=== PATIENT | female | born 1950 | race Caucasian/White ===

== ENCOUNTER 2018-03-17 07:42 | Day surgery (SDC) | payer BC, MEDICARE ==
[2018-03-15 13:45] VITALS: BMI 28.1
[2018-03-17 07:56] LABS: #Eosinphils 0.2 thou/uL (0.0-0.7); #Lymphocytes 1.6 thou/uL (1.20-3.40); #Monocytes 0.4 thou/uL (0.11-0.59); #Neutrophils 3.1 thou/uL (1.40-6.50); %Basophils 0.8 % (0.0-1.0); %Eosinophils 3.4 % (0.0-10.0); %Lymphocytes 30.9 % (21.0-51.0); %Monocytes 6.6 % (0.0-10.0); %Neutrophils 58.3 % (42.0-75.0); Hemoglobin 12.8 g/dL (12.0-16.0); Mean Corpuscular HGB CONC 33.3 g/dL (32.0-36.0); Mean Corpuscular Hemoglobin 29.4 pg (27.0-31.0); Mean Corpuscular Volume 88.3 fL (78.0-98.0); Mean Platelet Volume 8.3 fL (7.4-10.4); Platelet Count 245 thou/uL (130-400); RBC Distribution Width 12.7 % (11.5-14.5); Red Blood Cell (RBC) Count 4.37 mill/uL (4.20-5.40); White Blood Cell (WBC) Count 5.3 thou/uL (4.8-10.8)
[2018-03-17 08:06] LABS: INR-International Normal Ratio 0.9; PTT 30.9 SEC (22.9-36.1); Prothrombin Time 12.6 SEC (12.0-14.7)
[2018-03-17 08:36] VITALS: BP 138/86; TEMP 97
[2018-03-17] MEDS ORDERED: Sodium Bicarbonate 2.5 MEQ/5 ML VIAL ONE (08:38)
[2018-03-17] MEDS ORDERED: Midazolam HCl 2 mg/2 ml Vial ONE (08:38)
[2018-03-17] MEDS ORDERED: Lidocaine 1% PF 5 ML VIAL ONE (08:39)
[2018-03-17] MEDS ORDERED: Fentanyl 100 MCG/2 ML VIAL ONE (08:39)
[2018-03-17] MEDS ORDERED: Ondansetron HCl/PF 4 MG/2 ML Vial ONE (10:20)
--- NOTE | 2018-03-17 11:29 | ULT ---
SONOGRAPHIC GUIDED RANDOM HEPATIC BIOPSY: HISTORY: Cirrhosis. Followup. TECHNIQUE: After explaining the procedure and answering all questions, a sonographic survey of the abdomen was p erformed. Sterile technique, buffered local anesthesia, sonographic guidance, and a subxiphoid right upper quadrant approach were used to carefully advance a 17 gauge trocar needle into the left liver lobe. Position was confirmed with sonographic imaging. Two 18 gauge core biopsy specimens were obta ined and eventually submitted to pathology for evaluation. The needle was removed. Post procedure i maging shows no evidence of complication. The patient tolerated the procedure well and was returned to the holding area in good condition for further monitoring. IMPRESSION: Technically successful sonographic guided random hepatic biopsy. Pathology is pending. POS: KINDRA
== END 2018-03-17 12:00 | disposition home or self-care (01) ==
LOC: ULT 07:42
PROVIDERS: ATTEND Radiology Diagnostic Radiology
PROC: 0FB03ZX Excision of Liver, Percutaneous Approach, Diagnostic (ICD-10-PCS; principal; 2018-03-17)
DX: K73.9 Chronic hepatitis, unspecified (principal); K74.3 Primary biliary cirrhosis; Z83.79 Family history of other diseases of the digestive system
CPT/HCPCS: 36415; 47000; 76942; 85025; 85610; 85730; 88307; 88313; J2001; J2250; J2405; J3010

== ENCOUNTER 2018-03-20 21:25 | Inpatient (IN) | payer BC, MEDICARE ==
[2018-03-20] MEDS ORDERED: Lidocaine Viscous Sol 2% 15 ml UD Cup ONE (21:56)
[2018-03-20] MEDS ORDERED: Famotidine/PF 20 mg/2ml Vial ONE (21:56)
[2018-03-20] MEDS ORDERED: Mag-Al Plus 1200 MG/1200 MG/120 MG/30 ML UDCUP ONE (21:56)
[2018-03-20] MEDS ORDERED: Nitroglycerin 2% Ointment 1 INCH/1 GM Packet ONE (21:56)
[2018-03-20 21:58] LABS: #Basophils 0.1 thou/uL (0.0-0.2); #Lymphocytes 1.5 thou/uL (1.20-3.40); #Monocytes 0.5 thou/uL (0.11-0.59); #Neutrophils 8.5 thou/uL (1.40-6.50); %Basophils 1.3 % (0.0-1.0); %Eosinophils 0.1 % (0.0-10.0); %Monocytes 4.6 % (0.0-10.0); Hemoglobin 12.6 g/dL (12.0-16.0); Mean Corpuscular HGB CONC 36.1 g/dL (32.0-36.0); Mean Corpuscular Hemoglobin 29.1 pg (27.0-31.0); Mean Corpuscular Volume 80.6 fL (78.0-98.0); Mean Platelet Volume 10.1 fL (7.4-10.4); Platelet Count 247 thou/uL (130-400); RBC Distribution Width 11.3 % (11.5-14.5); Red Blood Cell (RBC) Count 4.33 mill/uL (4.20-5.40); White Blood Cell (WBC) Count 10.7 thou/uL (4.8-10.8)
--- NOTE | 2018-03-20 22:00 | RAD ---
PORTABLE CHEST ONE VIEW: 03/20/18 at 10:05 p.m. HISTORY: Chest pain. FINDINGS: Comparison made with exam of 02/13/12. The heart size is normal. No focal areas of consolidation, pneumothoraces or pleural effusions are se en. IMPRESSION: No acute process. POS: MZA
[2018-03-20 22:10] LABS: ALT (SGPT) 192 U/L (8-55); AST (SGOT) 350 U/L (5-34); Albumin 4.4 g/dL (3.4-4.8); Alkaline Phosphatase 192 U/L (40-150); Anion Gap 20 mmol/L (10-20); BUN (Urea Nitrogen) 18 mg/dL (9.8-20.1); Bilirubin, Total 3.2 mg/dL (0.2-1.2); Calc. Creatinine Clearance 0 mL/min (70-130); Calcium 10.2 mg/dL (7.8-10.44); Carbon Dioxide 22 mmol/L (23-31); Chloride 89 mmol/L (98-107); Estimated GFR-MDRD 67; Globulin 3.2 g/dL (2.4-3.5); Glucose 169 mg/dL (80-115); Lipase 528 U/L (8-78); Potassium 3.8 mmol/L (3.5-5.1); Protein, Total 7.6 g/dL (6.0-8.3); Sodium 127 mmol/L (136-145)
[2018-03-20 22:12] LABS: CKMB 1.4 ng/mL (0-6.6); Troponin I 0.011 ng/mL (< 0.028)
[2018-03-20] MEDS ORDERED: Morphine 4 MG/ML Carpuject ONE (22:35)
[2018-03-20] MEDS ORDERED: Promethazine HCl 25 MG/ML VIAL ONE (23:19)
--- NOTE | 2018-03-20 23:46 | CT ---
CT ANGIOGRAM OF THE CHEST 03/20/18 COMPARISON: None. HISTORY: Chest pain with elevated D-dimer. TECHNIQUE: Serial axial CT imaging obtained at 2 mm intervals from the thoracic inlet through the upper abdomen with IV contrast using CT angiogram protocol. Coronal and sagittal 3D reformatted imaging obtained. FINDINGS: The imaged upper abdomen demonstrates an incompletely imaged adrenal mass on the left measuring 3.4 x 2.1 cm with Hounsfield units of approximately 90. When compared to a prior CT of the abdomen [facility] 12/31/11, this adrenal lesion has only slightly increased in size as it previously measured approx imately 2.1 x 3.3 cm. This suggests a benign etiology. There are splenic granulomata. There is disten tion of the stomach which is filled with fluid. There is a nonspecific ill-defined hyperdense lesion within the anterior aspect of the left lobe of the liver measuring 1.5 cm. No pleural, pericardial or mediastinal fluid is seen. There is no axillary, mediastinal, or hilar lymphadenopathy noted. There is atherosclerotic calcification of the coronary arteries and the aortic arch. There is no pleural, pericardial or mediastinal fluid. No pneumothorax is evident on either side. The lung parenchyma demonstrates no acute findings on either side. Mild increased linear interstitial densities are noted within both lung bases. Calcified nodes are se en in the subcarinal and left hilar region, evidence of prior granulomatous disease. There is adequate opacification of the pulmonary arterial vasculature. There is no evidence for pulmo nary arterial embolism. Review of the osseous structures demonstrates no worrisome lytic or blastic bone lesion. IMPRESSION: 1. No evidence for pulmonary arterial embolism. 2. Hyperenhancing focus within the left lobe of the liver as described above. This may represent a hyperenhancing lass lesion. Mild inflammatory change on the basis of recent biopsy is a possibilit y. Recommend a followup CT examination of the abdomen with and without contrast utilizing a hepatic m ass protocol in 4-6 weeks. Code T POS: KINDRA
[2018-03-21 01:30] LABS: Troponin I Less than 0.010 ng/mL (< 0.028)
[2018-03-21] MEDS ORDERED: Ondansetron HCl/PF 4 MG/2 ML Vial IVP PRN ×2 (02:35→03:41)
[2018-03-21] MEDS ORDERED: Ondansetron ODT 4 MG TAB SL PRN (02:35)
[2018-03-21] MEDS ORDERED: Dextrose 5 %-0.45 % NaCl 1,000 ML IV SCH (02:45)
[2018-03-21] MEDS ORDERED: Calcium Carbonate 500 MG ChewTAB PO PRN (03:41)
[2018-03-21] MEDS ORDERED: Loratadine 10 MG TAB PO PRN (03:41)
[2018-03-21] MEDS ORDERED: Mag-Al 1200 mg/1200 mg/30 ML UDCUP PO PRN (03:41)
[2018-03-21] MEDS ORDERED: Bisacodyl 5 MG TAB PO PRN (03:41)
[2018-03-21] MEDS ORDERED: HYDROcodone/Acetaminophen 10/325 mg Tablet PO PRN (03:41)
[2018-03-21] MEDS ORDERED: Diabetic Tussin 200 MG/10 ML UDCUP PO PRN (03:41)
[2018-03-21] MEDS ORDERED: Nitroglycerin 0.4 MG TAB (25 Tab Bottle) SL PRN (03:41)
[2018-03-21] MEDS ORDERED: Benzonatate 100 MG CAP PO PRN (03:41)
[2018-03-21] MEDS ORDERED: Acetaminophen 650 MG Suppository PR PRN (03:41)
[2018-03-21] MEDS ORDERED: Senokot 8.6 MG TAB PO PRN (03:41)
[2018-03-21 04:23] VITALS: BMI 28.3
[2018-03-21 05:13] LABS: #Lymphocytes 0.8 thou/uL (1.20-3.40); #Monocytes 0.4 thou/uL (0.11-0.59); #Neutrophils 7.3 thou/uL (1.40-6.50); %Basophils 0.3 % (0.0-1.0); %Eosinophils 0.1 % (0.0-10.0); %Lymphocytes 9.1 % (21.0-51.0); %Monocytes 4.8 % (0.0-10.0); %Neutrophils 85.8 % (42.0-75.0); Mean Corpuscular HGB CONC 34.8 g/dL (32.0-36.0); Mean Corpuscular Hemoglobin 30.3 pg (27.0-31.0); Mean Corpuscular Volume 87.1 fL (78.0-98.0); Mean Platelet Volume 8.6 fL (7.4-10.4); Platelet Count 213 thou/uL (130-400); RBC Distribution Width 12.3 % (11.5-14.5); Red Blood Cell (RBC) Count 3.96 mill/uL (4.20-5.40); White Blood Cell (WBC) Count 8.5 thou/uL (4.8-10.8)
[2018-03-21 05:18] LABS: ALT (SGPT) 226 U/L (8-55); AST (SGOT) 347 U/L (5-34); Albumin 3.9 g/dL (3.4-4.8); Alkaline Phosphatase 200 U/L (40-150); Anion Gap 17 mmol/L (10-20); BUN (Urea Nitrogen) 14 mg/dL (9.8-20.1); Bilirubin, Total 3.4 mg/dL (0.2-1.2); Calc. Creatinine Clearance 75 mL/min (70-130); Calcium 8.8 mg/dL (7.8-10.44); Carbon Dioxide 21 mmol/L (23-31); Chloride 93 mmol/L (98-107); Estimated GFR-MDRD 71; Glucose 185 mg/dL (80-115); Potassium 3.9 mmol/L (3.5-5.1); Protein, Total 6.9 g/dL (6.0-8.3); Sodium 127 mmol/L (136-145)
[2018-03-21 05:21] LABS: CKMB 0.9 ng/mL (0-6.6); Troponin I Less than 0.010 ng/mL (< 0.028)
[2018-03-21] MEDS: Sodium Chloride 0.9% 1,000 ML IV SCH ×5 (05:36→22:52)
[2018-03-21] MEDS: Levothyroxine Sodium 100 MCG TAB PO SCH (05:38)
--- NOTE | 2018-03-21 06:55 | HP ---
DATE OF ADMISSION: 03/21/2018 PRIMARY CARE PHYSICIAN: Naveed Spears M.D. CHIEF COMPLAINT: Abdominal pain and chest pain. HISTORY OF PRESENT ILLNESS: Ms. Jaramillo is a pleasant 67-year-old female with past medical history of p rimary biliary cirrhosis under the care of Dr. Wood as well as history of single vessel coronary karen ry disease diagnosed in 2005 by cardiac catheterization, who follows up with Dr. Avila and diabetes and hypertension, who presented to the ER with above-mentioned complaints. History is mainly obtaine d by the patient herself and electronic medical records have been reviewed. The patient underwent a liver biopsy on 03/18 or 03/19/[address] Wood. She reports that yesterday afternoon while shopping in [employer], she developed sudden onset of sharp abdominal pain startin g from the lower abdomen and traveling upwards. She felt extremely nauseated, went to the restroom a nd threw up. She has been feeling poorly since the liver biopsy. This episode resolved with vomitin g, but later she had similar episode and this time the pain was more epigastric, going upwards in the chest. She denies any shortness of breath. She denies any constipation or diarrhea. No fever or c hills. Once again at the second episode, she felt nauseated, but did not throw up. These episodes w ere associated with some shortness of breath and diaphoresis. She reports that she has been having some heartburn-like symptoms, so she underwent a cardiac evaluat ion by cable television line technician, Dr. Avila in December and had a cardiac stress test as well as lower extremity ultra sound and was reportedly everything was normal. She normally takes aspirin but has not taken it for the last 3 days since her biopsy and does not know when it is okay to restarted. She presented to the ER and her blood pressure was 173/82, otherwise hemodynamically stable. She was found to have epigastric tenderness on examination per the ER physician. Twelve lead EKG showed rig ht bundle branch block. Her lab examination showed elevated D-dimer of 2.57. So, she underwent a CT angio of the thorax, whi ch was negative for any pulmonary embolism. Her serum chemistries were consistent with hyperbilirubi nemia with a bilirubin of 3.2 and elevated liver enzymes. Cardiac enzymes were negative. She was al so hyponatremic with a sodium of 127. Blood sugar 169. Her lipase was found to be elevated at 528. She is now being admitted to the hospital for acute pancreatitis and further workup of chest pain/abd ominal pain. PAST MEDICAL HISTORY: 1. Primary biliary cirrhosis. 2. Diabetes mellitus type 2. 3. Hypothyroidism. 4. Hypertension. 5. Dyslipidemia. PAST SURGICAL HISTORY: 1. Cholecystectomy 2. Hysterectomy. 3. Appendectomy. 4. Liver biopsy earlier this month. SOCIAL HISTORY: She is and lives with her family. No history of drug, tobacco or alcohol ab use. FAMILY HISTORY: Coronary artery disease in a father who at the age of 68. Mother had breast ca ncer. Multiple siblings with diabetes. ALLERGIES: Include CARISOPRODOL. HOME MEDICATIONS: Metformin 850 mg p.o. t.i.d., ursodiol 500 mg p.o. b.i.d., losartan/hydrochlorothi azide 100/12.5 mg daily, Victoza 1.2 mg subcutaneous daily, levothyroxine 100 mcg daily, lansoprazole 15 mg daily, hydrocodone as needed, atorvastatin 40 mg daily, and aspirin 81 mg daily. REVIEW OF SYSTEMS: A 12-point review of systems is done. It is negative except for those mentioned in the history and physical. LABORATORY DATA: Sodium 124, chloride 89, bicarbonate 22, blood sugar 169, total bilirubin 3.2, AST 350, ALT 192, alkaline phosphatase 192. Please note that all of these values have been normal histor ically. Lipase is 528, troponin is 0.011, then less than 0.010 with a normal CK-MB. CBC shows 80% n eutrophils with normal WBC count. D-dimer 2.57. CT angio negative for any pulmonary embolism. Ches t x-ray by my review has no evidence to suggest pleural effusion, edema or infiltrate. Twelve lead E KG by my review shows no acute ST-T wave changes, normal sinus rhythm seen, right bundle branch block seen. PHYSICAL EXAMINATION: VITAL SIGNS: Most recent vital signs, temperature 97, heart rate 92, respirations 18, saturating 96% on room air, blood pressure 128/70. GENERAL: No acute distress, awake, alert, oriented x3. HEENT: Mucous membranes are slightly dry. No oropharyngeal exudate or erythema. Head is normocepha lic, atraumatic. Pupils equal, reactive to light and accommodation. Extraocular movement intact. NECK: Supple without any lymphadenopathy, JVD or bruit. CHEST: Clear to auscultation without any wheezing, rales or rhonchi. CARDIOVASCULAR: Rhythm is regular without any murmur, rubs or gallops. ABDOMEN: Soft, nontender, nondistended to gentle palpation. Bowel sounds are not heard very well. No guarding, rebound or rigidity. No hepatosplenomegaly. EXTREMITIES: Free of any cyanosis, clubbing, or edema. NEUROLOGIC: Nonfocal. SKIN: Free of any rashes or bruises. Feel warm and dry to touch. PSYCHIATRIC: Normal affect. IMPRESSION AND PLAN: 1. Acute pancreatitis. This most likely secondary to post-procedural pancreatitis. She had a liver biopsy done about 2 or 3 days ago. We will keep her n.p.o. and continue with IV fluid generously. We will request consultation with Gastroenterology in the morning. Repeat serum chemistries and live r profile in the morning. Repeat lipase in the morning as well. 2. Chest pain. The patient's symptoms are more consistent with abdominal pain secondary to acute pa ncreatitis. I do not feel that the patient was having acute chest pain: However, given her history of 30% lesion in one artery in 2005, we will go ahead and obtain a transthoracic echocardiogram and c ontinue serial cardiac enzymes and restart her aspirin once she is able to take oral. She recently h ad a cardiac stress test done as an outpatient and we will get these records from Dr. Avila's office . 3. Diabetes mellitus type 2. The patient will be n.p.o., so we will hold her oral hypoglycemics. W e will start her on insulin sliding scale with Accu-Cheks a.c. and at bedtime. 4. History of gastroesophageal reflux disease. We will start the patient on IV Protonix for now as long as she is n.p.o. Restart lansoprazole when she is able to take orally. 5. Hypothyroidism. Restart her home medication of levothyroxine once she is able to take oral. 6. History of dyslipidemia. Continue atorvastatin when she is cleared to take oral intake. 7. Hypertension. Resume home medications once able to take oral. Meanwhile, we will add p.r.n. ant ihypertensives. 8. Code status: FULL CODE. Discussed with the patient. 9. Deep venous thrombosis and gastrointestinal prophylaxis. DISPOSITION: Ms. Jaramillo is currently being admitted to the hospital for acute pancreatitis and further workup of her chest pain, possibly abdominal pain. Estimated length of stay at this time is at as t 2-3 midnights. Further management will depend upon her clinical course.
[2018-03-21] MEDS ORDERED: LANSOPRAZOLE 15 MG PO SCH (09:00)
[2018-03-21] MEDS: Enoxaparin Sodium 40 MG/0.4 ML SYRINGE SC SCH (09:35)
[2018-03-21] MEDS: Pantoprazole 40 MG VIAL IVP SCH (10:09)
[2018-03-21] MEDS: Ursodiol 300 MG CAP PO SCH ×2 (10:09→21:13)
[2018-03-21] MEDS: Aspirin 81 mg Enteric Coated Tablet PO SCH (10:10)
[2018-03-21] MEDS: Atorvastatin Calcium 40 MG TAB PO SCH (10:10)
[2018-03-21] MEDS ORDERED: Dextrose 5% in Water 1,000 ML IV PRN (10:20)
[2018-03-21] MEDS ORDERED: Dextrose 50% Abboject 50 ML SYRINGE SLOW IVP PRN (10:20)
--- NOTE | 2018-03-21 13:34 | CON ---
DATE OF CONSULTATION: 03/21/2018 GASTROINTESTINAL INPATIENT CONSULTATION NOTE REQUESTING PHYSICIAN: Dr. Rodriguez. REASON FOR CONSULTATION: Abdominal pain and elevated LFTs after liver biopsy. HISTORY OF PRESENT ILLNESS: Rosalba Jaramillo is a very pleasant 67-year-old woman, a patient of my GI colleague, Dr. Andrew Wood. 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 She has been taking ursodiol 500 mg b.i.d. She had had a prior liver biopsy in 2007 showing only stage I fibrosis. He saw her in clinic just a week and a half ago and she was doing very well. She has no chronic abdominal symptoms or jaundice. He had gotten laboratory studies on her last month and this demonstrated a hemoglobin A1c 7.5. Normal iron studies, normal CBC, normal LFTs and TSH. He did or dontrell a liver biopsy and this was performed just 4 days ago on 03/17/2018 under ultrasound guidance. T his was performed of the left liver lobe with an anterior approach. The liver biopsy result is back and it shows only grade I/IV activity and stage II/IV liver fibrosis; however, the patient says that she has done poorly since the liver biopsy. Later, the day of the procedure, she had acute upper abd ominal pain which seemed to resolve after some vomiting. She did well for a day, but then yesterday started to have acute worsening of her upper abdominal pain again and had multiple episodes of vomiti ng. Everytime she vomits and then goes and lies down, her pain will improve a bit. However, this vega s become recurrent and acutely worse yesterday. Her appetite has been poor and she has had minimal o ral intake over this time. Bowel movements have not changed. She has not had any fever. She presen esequiel to the hospital last night with ongoing symptoms and laboratory studies were significant for elev ated D-dimer to 2.57 but also acute elevation of LFTs, total bilirubin is now 3.4, alkaline phosphata se 200, AST 347, ALT 226. Lipase was also elevated to 528. Cardiac enzymes negative. Again, note t hat LFTs were all normal on recent labs last month. The patient states that she was started on Victo za just a couple of weeks ago and was wondering if her symptoms might be a side effect of that. Curr ently, her pain is well controlled. She is receiving IV fluids. She has been hemodynamically stable . REVIEW OF SYSTEMS: Full review of systems including constitutional, head, eyes, ears, nose, throat, GI, , cardiovascular, respiratory, musculoskeletal, and neurologic systems is negative except as no esequiel in the HPI. PAST MEDICAL HISTORY: GERD, primary biliary cholangitis, only stage II fibrosis, gallstones, status post cholecystectomy, thyroidectomy, appendectomy, hysterectomy, shoulder surgery, diabetes type 2, h ypertension, hyperlipidemia, liver biopsy 4 days ago. SOCIAL HISTORY: No tobacco, alcohol, or drug abuse. FAMILY HISTORY: She had a sister of variceal bleeding. Her mother had breast cancer. Multiple siblings with diabetes. ALLERGIES: Devonte protocol. HOME MEDICATIONS: Metformin, ursodiol 500 mg b.i.d., losartan/hydrochlorothiazide, Victoza, levothyr oxine, lansoprazole 15 mg daily, hydrocodone as needed, atorvastatin, and aspirin 81 mg daily. PHYSICAL EXAMINATION: VITAL SIGNS: Temperature 98.3, pulse 81, blood pressure 113/61, 93% oxygen saturation on room air. GENERAL: A 67-year-old woman lying in bed comfortably in no distress. MENTAL: Alert and fully oriented, pleasant, conversational. SKIN: No jaundice, no rash visible or palpable. EYES: No scleral icterus. Extraocular movements intact. ENT: Mucous membranes moist, no oral lesions. LYMPH: No submandibular, supraclavicular lymphadenopathy. THYROID: Nontender to palpation. HEART: Regular rate and rhythm. LUNGS: Clear to auscultation bilaterally. ABDOMEN: Bowel sounds present, soft, some tenderness to palpation in the epigastrium and right upper quadrant. No guarding or rebound tenderness. EXTREMITIES: No peripheral edema. VESSELS: Radial pulses 2+ bilaterally. NEUROLOGICAL: Cranial nerves II-XII intact bilaterally. No focal deficits. LABORATORY STUDIES: Sodium 127, potassium 3.9, BUN 14, creatinine 0.81, total bilirubin 3.4, alkalin e phosphatase 200, AST 347, ALT 226, albumin 3.9, lipase 528. D-dimer is 2.57. WBC 8.5, hemoglobin 12.0, platelets 213. IMAGING STUDIES: CT angiogram of the chest and upper abdomen was performed last night on admission, she has a left adrenal mass measuring 3.4 cm which appeared benign. There is splenic granulomata. T here is distention of the stomach, which was filled with fluid and there is a nonspecific ill-defined hyperdense lesion in the anterior left lobe of the liver measuring 1.5 cm, with mild inflammatory ch naomi on the basis of recent biopsy a possibility. There was no evidence of pulmonary embolism. ASSESSMENT AND PLAN: 1. Acute pancreatitis. 2. Elevated liver function tests, acute, following a recent liver biopsy. 3. Primary biliary cholangitis, stable for years on ursodiol, only stage II/IV fibrosis. The patien t has a clear acute elevation in LFTs and lipase with symptoms all in the context of recent liver bio psy 4 days ago. Accordingly, a complication from the liver biopsy leads the differential. Her sympt oms of pain all do seem to be localized to the epigastrium near the site with a liver biopsy was obta ined. Need to consider injury to the pancreas or one of the larger bile ducts, though this was not e vident on her CT of the chest from yesterday. I feel it is less likely that this is related to her r ecent starting up on the Victoza, but I would hold that for now. I will order an MRCP for hopefully better evaluation of the biliary and pancreatic anatomy. Please trend the LFTs and lipase daily. Ot herwise, continue supportive care as you are doing, n.p.o. status and analgesia and IV fluids. Thank you for the consultation. GI will follow along. Please call me time with questions or concern s.
--- NOTE | 2018-03-21 15:40 | PDOC.EVN ---
Event Note - Event Note Event Note: Chart reviewed. Patient seen. Pt going for MRI, will follow.
--- NOTE | 2018-03-21 15:43 | MRI ---
MRI ABDOMEN WITHOUT CONTRAST: HISTORY: Elevated LFTs, pancreatitis. FINDINGS: The patient is post cholecystectomy. No abnormal biliary ductal dilatation is seen. There is a fill ing defect in the distal common bile duct suspicious for choledocholithiasis. The liver, spleen, jacome creas, right adrenal gland, and right kidney appear normal. There is a small cyst in the superior po le of the left kidney. The 3 cm left adrenal mass demonstrates no signal dropout on the [id number] images. This indicates that this is not a lipid-rich adenoma. However, on the CT scan of 12/31/11, this mass was seen and demonstrated characteristics of a lipid-poor adenoma. No free fluid or lymphadenopathy is seen. The small bowel loops are not abnormally dilated. Bone ma rrow signal is normal. IMPRESSION: 1. Findings are suspicious for choledocholithiasis. 2. Stable left adrenal mass consistent with lipid-poor adenoma. 3. Left renal cyst. POS: LOIS
--- NOTE | 2018-03-21 18:39 | PRG ---
DATE OF SERVICE: 03/21/2018 GASTROINTESTINAL INPATIENT PROGRESS NOTE I reviewed Ms. Jaramillo's MRCP and discussed the findings with her. The MRCP demonstrates a filling defe ct in the distal common bile duct read as suspicious for choledocholithiasis. Liver, spleen and panc reas appeared normal. There is a stable left adrenal mass consistent with the lipid poor adenoma as well, not clinically significant with regard to this hospitalization. It is unclear to me whether this distal CBD filling defect really represents choledocholithiasis, or whether it might represent a blood clot as a complication of her recent liver biopsy regardless, this filling defect is likely responsible for her current presentation of pancreatitis. I recommended th at we proceed with ERCP to try to clear the bile duct. We can get this done tomorrow. I discussed t he benefits and also risks of the procedure with the patient including worsening of pancreatitis. Th e patient desires to proceed. We will plan for ERCP tomorrow.
[2018-03-22] MEDS: Sodium Chloride 0.9% 1,000 ML IV SCH ×5 (03:33→22:01)
[2018-03-22 05:00] LABS: #Lymphocytes 1.2 thou/uL (1.20-3.40); #Monocytes 0.3 thou/uL (0.11-0.59); #Neutrophils 3.7 thou/uL (1.40-6.50); %Basophils 0.4 % (0.0-1.0); %Eosinophils 0.8 % (0.0-10.0); %Lymphocytes 23.2 % (21.0-51.0); %Monocytes 6.3 % (0.0-10.0); %Neutrophils 69.3 % (42.0-75.0); Mean Corpuscular HGB CONC 34.1 g/dL (32.0-36.0); Mean Corpuscular Hemoglobin 30.5 pg (27.0-31.0); Mean Corpuscular Volume 89.3 fL (78.0-98.0); Mean Platelet Volume 8.4 fL (7.4-10.4); Platelet Count 201 thou/uL (130-400); RBC Distribution Width 12.6 % (11.5-14.5); White Blood Cell (WBC) Count 5.3 thou/uL (4.8-10.8)
[2018-03-22 05:15] LABS: ALT (SGPT) 245 U/L (8-55); AST (SGOT) 274 U/L (5-34); Albumin 3.5 g/dL (3.4-4.8); Alkaline Phosphatase 206 U/L (40-150); Anion Gap 13 mmol/L (10-20); BUN (Urea Nitrogen) 16 mg/dL (9.8-20.1); Bilirubin, Total 3.5 mg/dL (0.2-1.2); Calc. Creatinine Clearance 81 mL/min (70-130); Calcium 8.2 mg/dL (7.8-10.44); Carbon Dioxide 20 mmol/L (23-31); Chloride 106 mmol/L (98-107); Estimated GFR-MDRD 77; Globulin 2.6 g/dL (2.4-3.5); Glucose 133 mg/dL (80-115); Lipase 63 U/L (8-78); Potassium 3.6 mmol/L (3.5-5.1); Protein, Total 6.1 g/dL (6.0-8.3); Sodium 135 mmol/L (136-145)
[2018-03-22] MEDS: Levothyroxine Sodium 100 MCG TAB PO SCH (06:48)
[2018-03-22] MEDS: Pantoprazole 40 MG VIAL IVP SCH (08:28)
[2018-03-22] MEDS ORDERED: Fentanyl 100 MCG/2 ML VIAL SLOW IVP SCH ×2 (10:00→11:45)
[2018-03-22] MEDS: hydrALAZINE 20 MG/ML VIAL SLOW IVP PRN ×2 (11:16→20:40)
[2018-03-22] MEDS: Atorvastatin Calcium 40 MG TAB PO SCH (11:20)
[2018-03-22] MEDS: Aspirin 81 mg Enteric Coated Tablet PO SCH (11:20)
[2018-03-22] MEDS: Ursodiol 300 MG CAP PO SCH ×2 (11:21→20:39)
[2018-03-22] MEDS ORDERED: Indomethacin 50 MG SUPP ONE (11:56)
[2018-03-22] MEDS ORDERED: Iothalamate Meglumine 60% 50 ML VIAL FS ONE (11:56)
[2018-03-22] MEDS ORDERED: Phenylephrine HCL 10 MG/ML VIAL ONE (12:09)
[2018-03-22] MEDS ORDERED: PROPOFOL 200 MG/20 ML VIAL ONE (12:14)
[2018-03-22] MEDS ORDERED: Lidocaine 1% PF 5 ML VIAL ONE (12:14)
[2018-03-22] MEDS ORDERED: Ondansetron HCl/PF 4 MG/2 ML Vial ONE (12:14)
[2018-03-22] MEDS ORDERED: Glycopyrrolate 0.2 MG/ML 5 ML SYRINGE ONE (12:14)
[2018-03-22] MEDS ORDERED: PHENYLEPHRINE-NS 100 MCG/ML 10 ML SYRINGE ONE (12:14)
[2018-03-22] MEDS ORDERED: Dexamethasone 20 MG/5 ML VIAL ONE (12:14)
[2018-03-22] MEDS ORDERED: Fentanyl 100 MCG/2 ML VIAL ONE ×2 (12:34→14:27)
[2018-03-22] MEDS ORDERED: Promethazine HCl 25 MG/ML VIAL IM PRN ×2 (12:42→14:28)
[2018-03-22] MEDS ORDERED: Zolpidem Tartrate 5 MG TAB PO PRN (12:42)
[2018-03-22] MEDS ORDERED: fentaNYL Citrate/PF 2,000 MCG in Sodium Chloride 0.9% 60 ML IV PRN (12:42)
[2018-03-22] MEDS ORDERED: diphenhydrAMINE 50 MG/ML VIAL IM/IV PRN (12:42)
[2018-03-22] MEDS ORDERED: Ondansetron HCl/PF 4 MG/2 ML Vial IVP PRN ×2 (12:42→14:28)
[2018-03-22] MEDS ORDERED: diphenhydrAMINE 25 MG CAP PO PRN (12:42)
[2018-03-22] MEDS ORDERED: Naloxone HCl 0.4 mg/ml Vial IV PRN (12:43)
[2018-03-22] MEDS ORDERED: Levofloxacin 500 mg/D5W 100 ml Premix Bag ONE (12:51)
[2018-03-22] MEDS ORDERED: Meperidine HCl/PF 25 MG/ML VIAL SLOW IVP PRN (14:28)
[2018-03-22] MEDS ORDERED: Promethazine HCl 25 MG/ML VIAL SLOW IVP PRN (14:28)
[2018-03-22] MEDS ORDERED: Promethazine HCl 25 MG/ML VIAL ONE (14:29)
--- NOTE | 2018-03-22 14:51 | OP ---
DATE OF PROCEDURE: 03/22/2018 PROCEDURE: Endoscopic retrograde cholangiopancreatography with sphincterotomy and balloon sweep of t he bile duct. PREOPERATIVE DIAGNOSES: Pancreatitis and filling defect of the bile duct by MRCP with obstructive li richard tests and jaundice. OPERATIVE NOTE: Informed consent was obtained. The patient was sedated with general anesthesia. Th e duodenoscope was advanced easily to the second portion of the duodenum. The ampulla was identified and had a blood clot impacted in the ampulla. There was a large fold that draped down over the ampu lla and also covered a diverticulum immediately adjacent to the ampulla and proximal to it. The comm on bile duct was selectively cannulated with the wire easily. Cholangiogram was then performed which showed multiple filling defects throughout the common bile duct. There was red blood that drained a long with clots from the ampulla. There was red blood staining through the second portion of the duo denum. A complete sphincterotomy was performed. This was somewhat challenging given the large fold that was hanging down over the ampulla. The bile duct was then swept with a 12 mm balloon. A large amount of clot was swept clear with the balloon. Occlusion cholangiogram then confirmed the duct to be clear. There was still drainage of some blood in smaller clots. The duct was irrigated with ster ile water and this ultimately ran clear. There was a good drainage of the bile duct and a complete s phincterotomy through which a 12 mm balloon could pass. It was felt that a stent would become immedi ately clogged with blood clot. Therefore, a stent was not placed. The air was suctioned and fluid s uctioned from the stomach. The procedure was completed. IMPRESSION: 1. Hemobilia secondary to recent liver biopsy. 2. Blood clots were impacted at the ampulla and caused obstruction of the common bile duct. There w as a diverticulum immediately adjacent/proximal to the ampulla. The duodenal fold hung down covering the ampulla and the diverticulum. 3. Complete sphincterotomy performed. 4. The bile duct was swept clear with a 12 mm balloon. Large amount of clot was removed. The 12 mm balloon did pass easily through the ampulla. 5. The duct was irrigated with sterile water and occlusion cholangiogram showed the duct to be clear . RECOMMENDATIONS: 1. Follow trend of the liver function tests. 2. Clear liquid diet. 3. I will hold the enoxaparin and aspirin in light of evidence of recent or ongoing bleeding with th e hemobilia. She will continue to receive SCDs for DVT prophylaxis.
--- NOTE | 2018-03-22 15:40 | RAD ---
ERCP: HISTORY: Choledocholithiasis. FINDINGS: Intraoperative fluoroscopy was provided for ERCP as performed by Dr. Templeton. Spot fluoroscopic image s show endoscopic catheter overlying the duodenum. There is catheterization and opacification of a co mmon duct upper limits of normal in caliber. Some filling defect is apparent on initial images. Fin al images show decompression of the common duct. POS: [facility]
[2018-03-22] MEDS: Enoxaparin Sodium 40 MG/0.4 ML SYRINGE SC SCH (15:51)
--- NOTE | 2018-03-22 16:17 | PDOC.PN ---
- Subjective Encounter Start Date: 03/22/18 Encounter Start Time: 08:40 Pt seen for followup re: acute pancreatitis. Denies chest pain. c/o epigastric pain, 05/19. nausea+. - Objective Vital Signs & Weight: Vital Signs (12 hours) Temp Pulse Resp BP Pulse Ox 03/22/18 15:22 97.7 F 70 18 158/72 H 95 03/22/18 11:16 80 03/22/18 11:14 98 F 80 18 180/86 H 99 03/22/18 07:25 98.1 F 80 16 156/70 H 99 Weight Weight 155 lb I&O: 03/21/18 03/22/18 03/23/18 06:59 06:59 06:59 Intake Total 600 4437 Output Total 1900 3350 Balance -1300 1087 Result Diagrams: 03/22/18 04:31 03/22/18 04:31 Additional Labs: Accuchecks 03/22/18 03/22/18 03/21/18 10:46 05:47 20:40 POC Glucose 137 H 143 H 140 H 03/21/18 16:44 POC Glucose 131 H Phys Exam - Physical Examination Constitutional: NAD HEENT: moist MMs, oral pharynx no lesions, 2+ tonsils scleral icterus Neck: no nodes, no JVD, supple, full ROM Respiratory: no wheezing, no rales, no rhonchi, clear to auscultation bilateral Cardiovascular: RRR, no rub S1, S2 Gastrointestinal: soft, non-tender, no distention, positive bowel sounds Neurological: moves all 4 limbs Psychiatric: A&O x 3 Deviation from normal: in mild distress Dx/Plan (1) Acute pancreatitis Code(s): K85.90 - ACUTE PANCREATITIS WITHOUT NECROSIS OR INFECTION, UNSP Status: Acute Comment: biochemical improvement, but pt continues to be in significant pain (2) Choledocholithiasis Code(s): K80.50 - CALCULUS OF BILE DUCT W/O CHOLANGITIS OR CHOLECYST W/O OBST Status: Acute Comment: vs hemobilia. For ERCP. (3) CAD (coronary artery disease) Code(s): I25.10 - ATHSCL HEART DISEASE OF [place] CORONARY ARTERY W/O ANG PCTRS Status: Chronic Comment: stable (4) DM2 (diabetes mellitus, type 2) Status: Chronic Comment: continue accuchecks, insulin sliding scale (5) Hypothyroidism Code(s): E03.9 - HYPOTHYROIDISM, UNSPECIFIED Status: Chronic Comment: continue synthroid - Plan * . Review of Systems - Review of Systems Constitutional: negative: fever, chills, sweats, weakness, malaise Respiratory: negative: Cough, Shortness of Breath, SOB with Excertion, Pleuritic Pain, Wheezing Cardiovascular: negative: chest pain, palpitations, orthopnea, paroxysmal nocturnal dyspnea, edema, light headedness Gastrointestinal: Nausea, Abdominal Pain. negative: Vomiting, Diarrhea, Constipation, Melena, Hematochezia Genitourinary: negative: Dysuria, Frequency, Incontinence, Hematuria, Retention Skin: Melvin. negative: Rash, Lesions, Bruising - Medications/Allergies Allergies/Adverse Reactions: Allergies Allergy/AdvReac Type Severity Reaction Status Date / Time carisoprodol [From [employer]] Allergy Verified 03/16/18 10:31 Medications: Current Medications Acetaminophen (Tylenol) 650 mg [place] Q4H PRN PRN Reason: Headache/Fever or Pain Hydrocodone Bitart/Acetaminophen ([place] 10/325) 1 tab PO BIDPRN PRN PRN Reason: Mild-Moderate Pain (4-5) Al Hydroxide/Mg Hydroxide (Maalox) 30 ml PO Q6H PRN PRN Reason: Heartburn or Indigestion Atorvastatin Calcium (Lipitor) 40 mg PO DAILY [facility] Last Admin: 03/22/18 11:20 Dose: Not Given Benzonatate (Tessalon) 100 mg PO Q4H PRN PRN Reason: Cough Bisacodyl (Dulcolax) 10 mg PO DAILYPRN PRN PRN Reason: Constipation Calcium Carbonate (Tums) 1,000 mg PO Q4H PRN PRN Reason: Heartburn or Indigestion Dextrose/Water (Dextrose 50%) 25 gm SLOW IVP PRN PRN PRN Reason: Hypoglycemia Diphenhydramine HCl (Benadryl) 25 mg IM/IV Q3H PRN PRN Reason: Itching Diphenhydramine HCl (Benadryl) 25 mg PO Q3H PRN PRN Reason: Itching Fentanyl (Pacu-Sublimaze) 50 mcg SLOW IVP Q10MIN PRN PRN Reason: Moderate to Severe Pain (6-10) Stop: 03/22/18 17:29 Glucagon (Glucagon) 1 mg IM PRN PRN PRN Reason: Hypoglycemia Guaifenesin (Robitussin Sf) 200 mg PO Q4H PRN PRN Reason: Cough Hydralazine HCl (Apresoline) 10 mg SLOW IVP Q4H PRN PRN Reason: Systolic BP > 170 Last Admin: 03/22/18 11:16 Dose: 10 mg Sodium Chloride (Normal Saline 0.9%) 1,000 mls @ 200 mls/hr IV .Q5H [facility] Last Admin: 03/22/18 15:52 Dose: Not Given Dextrose/Water (D5w) 1,000 mls @ 0 mls/hr IV .Q0M PRN PRN Reason: Hypoglycemia Fentanyl Citrate 2,000 mcg/ (Sodium Chloride) 100 mls @ 0 mls/hr IV INF PRN PRN Reason: Pain Insulin Human Lispro (Humalog) 0 units SC .MILD SLIDING SCALE PRN PRN Reason: Mild Correctional Scale Levothyroxine Sodium (Synthroid) 100 mcg PO 0600 [facility] Last Admin: 03/22/18 06:48 Dose: Not Given Loratadine (Claritin) 10 mg PO DAILYPRN PRN PRN Reason: Sinus Symptoms Meperidine HCl (Pacu-Demerol) 12.5 mg SLOW IVP ONE PRN PRN Reason: Shivering Stop: 03/22/18 17:29 Morphine Sulfate (Morphine) 2 mg SLOW IVP Q4H PRN PRN Reason: PAIN 6-10 Last Admin: 03/22/18 05:20 Dose: 2 mg Naloxone HCl (Narcan) 0.2 mg IV Q5MIN PRN PRN Reason: RR <8 or pt obtun/unarousable Nitroglycerin (Nitrostat) 0.4 mg SL Q5MIN PRN PRN Reason: Chest Pain Non-Formulary Medication (Liraglutide [Victoza 3-Thierno]) 1.2 mg SC DAILY [facility] Ondansetron HCl (Zofran) 4 mg IVP Q6H PRN PRN Reason: Nausea/Vomiting Ondansetron HCl (Pacu-Zofran) 4 mg IVP ONE PRN PRN Reason: Nausea/Vomiting Stop: 03/22/18 17:29 Pantoprazole Sodium (Protonix) 40 mg PO DAILY [facility] Last Admin: 03/22/18 11:20 Dose: Not Given Pantoprazole Sodium (Protonix) 40 mg IVP DAILY [facility] Last Admin: 03/22/18 08:28 Dose: 40 mg Promethazine HCl (Phenergan) 12.5 mg IM Q4H PRN PRN Reason: Nausea/Vomiting Promethazine HCl (Pacu-Phenergan) 6.25 mg SLOW IVP ONE PRN PRN Reason: Nausea/Vomiting Stop: 03/22/18 17:29 Promethazine HCl (Pacu-Phenergan) 6.25 mg IM ONE PRN PRN Reason: Nausea/Vomiting Stop: 03/22/18 17:29 Senna (Senokot) 2 tab PO HSPRN PRN PRN Reason: Constipation Sodium Chloride (Flush - Normal Saline) 10 ml IVF Q12HR [facility] Last Admin: 03/22/18 11:21 Dose: Not Given Sodium Chloride (Flush - Normal Saline) 10 ml IVF PRN PRN PRN Reason: Saline Flush Ursodiol (Actigal) 600 mg PO BID [facility] Last Admin: 03/22/18 11:21 Dose: Not Given Zolpidem Tartrate (Ambien) 5 mg PO HSPRN PRN PRN Reason: Insomnia
[2018-03-22] MEDS: HumaLOG 300 UNITS/3 ML VIAL SC PRN (21:35)
[2018-03-22] MEDS: Non-Formulary Item 1 EACH (Liraglutide [Victoza 3-Pak] 1.2 MG) SC SCH (23:19)
[2018-03-23 05:07] LABS: #Monocytes 0.3 thou/uL (0.11-0.59); #Neutrophils 5.5 thou/uL (1.40-6.50); %Basophils 0.4 % (0.0-1.0); %Eosinophils 0.3 % (0.0-10.0); %Lymphocytes 15.1 % (21.0-51.0); %Monocytes 4.6 % (0.0-10.0); %Neutrophils 79.7 % (42.0-75.0); Hemoglobin 9.4 g/dL (12.0-16.0); Mean Corpuscular HGB CONC 35.1 g/dL (32.0-36.0); Mean Corpuscular Volume 88.3 fL (78.0-98.0); Mean Platelet Volume 8.5 fL (7.4-10.4); Platelet Count 198 thou/uL (130-400); RBC Distribution Width 12.7 % (11.5-14.5); Red Blood Cell (RBC) Count 3.05 mill/uL (4.20-5.40); White Blood Cell (WBC) Count 6.9 thou/uL (4.8-10.8)
[2018-03-23 05:21] LABS: ALT (SGPT) 228 U/L (8-55); AST (SGOT) 155 U/L (5-34); Albumin 3.4 g/dL (3.4-4.8); Alkaline Phosphatase 225 U/L (40-150); Anion Gap 12 mmol/L (10-20); BUN (Urea Nitrogen) 13 mg/dL (9.8-20.1); Bilirubin, Total 1.9 mg/dL (0.2-1.2); Calc. Creatinine Clearance 82 mL/min (70-130); Calcium 8.1 mg/dL (7.8-10.44); Carbon Dioxide 20 mmol/L (23-31); Chloride 107 mmol/L (98-107); Estimated GFR-MDRD 78; Globulin 2.5 g/dL (2.4-3.5); Glucose 131 mg/dL (80-115); Potassium 3.3 mmol/L (3.5-5.1); Protein, Total 5.9 g/dL (6.0-8.3); Sodium 136 mmol/L (136-145)
[2018-03-23] MEDS: Levothyroxine Sodium 100 MCG TAB PO SCH (06:02)
[2018-03-23] MEDS: Sodium Chloride 0.9% 1,000 ML IV SCH ×4 (06:02→20:48)
[2018-03-23] MEDS: Ursodiol 300 MG CAP PO SCH ×2 (08:59→20:47)
[2018-03-23] MEDS: Atorvastatin Calcium 40 MG TAB PO SCH (08:59)
[2018-03-23] MEDS: Pantoprazole 40 MG VIAL IVP SCH (09:00)
--- NOTE | 2018-03-23 11:51 | PDOC.PN ---
- Subjective Encounter Start Date: 03/23/18 Encounter Start Time: 07:40 Pt seen for followup re: biliary duct obstruction. - Objective MAR Reviewed: Yes Vital Signs & Weight: Vital Signs (12 hours) Temp Pulse Resp BP Pulse Ox 03/23/18 08:53 98.0 F 79 18 169/74 H 100 03/23/18 08:48 98.0 F 79 18 100 03/23/18 03:45 98.0 F 74 16 141/67 H 99 Weight Weight 155 lb 1.6 oz I&O: 03/22/18 03/23/18 03/24/18 06:59 06:59 06:59 Intake Total 4437 6100 Output Total 3350 2250 Balance 1087 3850 Result Diagrams: 03/23/18 04:26 03/23/18 04:26 Additional Labs: Accuchecks 03/23/18 03/22/18 03/22/18 05:37 20:36 16:37 POC Glucose 128 H 197 H 160 H EKG Reviewed by me: Yes (Tele: NSR) Phys Exam - Physical Examination Constitutional: NAD HEENT: moist MMs, oral pharynx no lesions, 2+ tonsils scleral icterus Neck: no nodes, no JVD, supple, full ROM Respiratory: no wheezing, no rales, no rhonchi, clear to auscultation bilateral Cardiovascular: RRR, no rub S1, s2 Gastrointestinal: soft, non-tender, no distention, positive bowel sounds Neurological: moves all 4 limbs Psychiatric: normal affect, A&O x 3 Dx/Plan (1) Hemobilia Code(s): K83.8 - OTHER SPECIFIED DISEASES OF BILIARY TRACT Status: Acute Comment: s/p ERCP. LFTs improving. Pain better. (2) CAD (coronary artery disease) Code(s): I25.10 - ATHSCL HEART DISEASE OF [place] CORONARY ARTERY W/O ANG PCTRS Status: Chronic Comment: stable (3) DM2 (diabetes mellitus, type 2) Status: Chronic Comment: on accuchecks, insulin sliding scale (4) Hypothyroidism Code(s): E03.9 - HYPOTHYROIDISM, UNSPECIFIED Status: Chronic Comment: on synthroid - Plan * . Review of Systems - Review of Systems Constitutional: negative: fever, chills, sweats, weakness, malaise Respiratory: negative: Cough, Shortness of Breath, SOB with Excertion, Pleuritic Pain, Wheezing Cardiovascular: negative: chest pain, palpitations, orthopnea, paroxysmal nocturnal dyspnea, edema, light headedness Gastrointestinal: Nausea, Abdominal Pain. negative: Vomiting, Diarrhea, Constipation, Melena, Hematochezia Genitourinary: negative: Dysuria, Frequency, Incontinence, Hematuria, Retention Musculoskeletal: negative: Neck Pain, Shoulder Pain, Arm Pain, Back Pain, Hand Pain, Leg Pain, Foot Pain - Medications/Allergies Allergies/Adverse Reactions: Allergies Allergy/AdvReac Type Severity Reaction Status Date / Time carisoprodol [From Soma] Allergy Verified 03/16/18 10:31 Medications: Current Medications Acetaminophen (Tylenol) 650 mg [place] Q4H PRN PRN Reason: Headache/Fever or Pain Hydrocodone Bitart/Acetaminophen ([place] 10/325) 1 tab PO BIDPRN PRN PRN Reason: Mild-Moderate Pain (4-5) Al Hydroxide/Mg Hydroxide (Maalox) 30 ml PO Q6H PRN PRN Reason: Heartburn or Indigestion Atorvastatin Calcium (Lipitor) 40 mg PO DAILY [facility] Last Admin: 03/23/18 08:59 Dose: 40 mg Benzonatate (Tessalon) 100 mg PO Q4H PRN PRN Reason: Cough Bisacodyl (Dulcolax) 10 mg PO DAILYPRN PRN PRN Reason: Constipation Calcium Carbonate (Tums) 1,000 mg PO Q4H PRN PRN Reason: Heartburn or Indigestion Dextrose/Water (Dextrose 50%) 25 gm SLOW IVP PRN PRN PRN Reason: Hypoglycemia Diphenhydramine HCl (Benadryl) 25 mg IM/IV Q3H PRN PRN Reason: Itching Diphenhydramine HCl (Benadryl) 25 mg PO Q3H PRN PRN Reason: Itching Glucagon (Glucagon) 1 mg IM PRN PRN PRN Reason: Hypoglycemia Guaifenesin (Robitussin Sf) 200 mg PO Q4H PRN PRN Reason: Cough Hydralazine HCl (Apresoline) 10 mg SLOW IVP Q4H PRN PRN Reason: Systolic BP > 170 Last Admin: 03/22/18 20:40 Dose: 10 mg Sodium Chloride (Normal Saline 0.9%) 1,000 mls @ 200 mls/hr IV .Q5H [facility] Last Admin: 03/23/18 09:16 Dose: 1,000 mls Dextrose/Water (D5w) 1,000 mls @ 0 mls/hr IV .Q0M PRN PRN Reason: Hypoglycemia Fentanyl Citrate 2,000 mcg/ (Sodium Chloride) 100 mls @ 0 mls/hr IV INF PRN PRN Reason: Pain Insulin Human Lispro (Humalog) 0 units SC .MILD SLIDING SCALE PRN PRN Reason: Mild Correctional Scale Last Admin: 03/22/18 21:35 Dose: 2 unit Levothyroxine Sodium (Synthroid) 100 mcg PO 0600 [facility] Last Admin: 03/23/18 06:02 Dose: 100 mcg Loratadine (Claritin) 10 mg PO DAILYPRN PRN PRN Reason: Sinus Symptoms Morphine Sulfate (Morphine) 2 mg SLOW IVP Q4H PRN PRN Reason: PAIN 6-10 Last Admin: 03/22/18 05:20 Dose: 2 mg Naloxone HCl (Narcan) 0.2 mg IV Q5MIN PRN PRN Reason: RR <8 or pt obtun/unarousable Nitroglycerin (Nitrostat) 0.4 mg SL Q5MIN PRN PRN Reason: Chest Pain Ondansetron HCl (Zofran) 4 mg IVP Q6H PRN PRN Reason: Nausea/Vomiting Pantoprazole Sodium (Protonix) 40 mg PO DAILY [facility] Last Admin: 03/23/18 08:59 Dose: 40 mg Pantoprazole Sodium (Protonix) 40 mg IVP DAILY [facility] Last Admin: 03/23/18 09:00 Dose: Not Given Promethazine HCl (Phenergan) 12.5 mg IM Q4H PRN PRN Reason: Nausea/Vomiting Senna (Senokot) 2 tab PO HSPRN PRN PRN Reason: Constipation Sodium Chloride (Flush - Normal Saline) 10 ml IVF Q12HR [facility] Last Admin: 03/23/18 09:00 Dose: Not Given Sodium Chloride (Flush - Normal Saline) 10 ml IVF PRN PRN PRN Reason: Saline Flush Ursodiol (Actigal) 600 mg PO BID [facility] Last Admin: 03/23/18 08:59 Dose: 600 mg Zolpidem Tartrate (Ambien) 5 mg PO HSPRN PRN PRN Reason: Insomnia
[2018-03-23] MEDS: HumaLOG 300 UNITS/3 ML VIAL SC PRN (13:05)
--- NOTE | 2018-03-23 13:05 | PRG ---
DATE OF SERVICE: 03/23/2018 SUBJECTIVE: Ms. Jaramillo underwent ERCP with biliary sphincterotomy and extraction of large amount of bl ood clots from her common bile duct with Dr. Templeton yesterday. The procedure went well. The patient relates that she is doing better from a symptomatic perspective today, pain requirements are decreasi ng. She is not having any nausea. She is tolerating her clear liquid diet today, though her appetit e remains poor. No bowel movements, certainly no melena. PHYSICAL EXAMINATION: VITAL SIGNS: Temperature 98.0, pulse 79, blood pressure 169/74, 100% oxygen saturation on room air. GENERAL: No acute distress. HEART: Regular rate and rhythm. LUNGS: Clear to auscultation bilaterally. ABDOMEN: Bowel sounds hypoactive, but present, soft, some tenderness to palpation in the upper abdom en, but no guarding, rebound tenderness. EXTREMITIES: No peripheral edema. LABORATORY STUDIES: WBC 6.9, hemoglobin trended down to 9.4, platelets 198. Sodium 136, potassium 3 .3, BUN 13, creatinine 0.74, glucose 180. LFTs are trending down with total bilirubin 1.9, alkaline phosphatase 225, AST 155, ALT 228. ASSESSMENT AND PLAN: 1. Hemobilia, as a complication of recent liver biopsy. 2. Biliary obstruction secondary to hemobilia, now status post endoscopic retrograde cholangiopancre atography with biliary sphincterotomy and extraction of blood clots from the common bile duct with Dr Miky Templteon yesterday, 03/22/2018. 3. Acute pancreatitis secondary to hemobilia, clinically improving. 4. Elevated liver function tests secondary to hemobilia, improving after ERCP. Clinically, the patient appears to be doing well. LFTs are down trending as expected. I think the p atjennifer's diet can be advanced as tolerated. Hopefully, if she is able to advance her diet and pain i s further improved tomorrow, she could potentially be discharged from the hospital. GI will continue to follow. Please call any time with questions or concerns.
[2018-03-24] MEDS: Sodium Chloride 0.9% 1,000 ML IV SCH ×5 (05:14→22:41)
[2018-03-24] MEDS: Levothyroxine Sodium 100 MCG TAB PO SCH (05:15)
[2018-03-24 08:54] LABS: #Basophils 0.1 thou/uL (0.0-0.2); #Eosinphils 0.2 thou/uL (0.0-0.7); #Lymphocytes 1.4 thou/uL (1.20-3.40); #Monocytes 0.4 thou/uL (0.11-0.59); %Basophils 0.7 % (0.0-1.0); %Eosinophils 2.9 % (0.0-10.0); %Lymphocytes 17.7 % (21.0-51.0); %Monocytes 4.4 % (0.0-10.0); %Neutrophils 74.3 % (42.0-75.0); Mean Corpuscular HGB CONC 34.3 g/dL (32.0-36.0); Mean Corpuscular Hemoglobin 30.4 pg (27.0-31.0); Mean Corpuscular Volume 88.6 fL (78.0-98.0); Mean Platelet Volume 8.7 fL (7.4-10.4); Platelet Count 206 thou/uL (130-400); RBC Distribution Width 12.9 % (11.5-14.5); Red Blood Cell (RBC) Count 3.27 mill/uL (4.20-5.40); White Blood Cell (WBC) Count 8.1 thou/uL (4.8-10.8)
[2018-03-24 09:12] LABS: ALT (SGPT) 179 U/L (8-55); AST (SGOT) 76 U/L (5-34); Albumin 3.8 g/dL (3.4-4.8); Alkaline Phosphatase 215 U/L (40-150); Anion Gap 12 mmol/L (10-20); BUN (Urea Nitrogen) 8 mg/dL (9.8-20.1); Bilirubin, Total 1.7 mg/dL (0.2-1.2); Calc. Creatinine Clearance 74 mL/min (70-130); Calcium 8.3 mg/dL (7.8-10.44); Carbon Dioxide 22 mmol/L (23-31); Chloride 107 mmol/L (98-107); Estimated GFR-MDRD 75; Globulin 2.7 g/dL (2.4-3.5); Glucose 113 mg/dL (80-115); Protein, Total 6.5 g/dL (6.0-8.3); Sodium 138 mmol/L (136-145)
[2018-03-24 09:26] LABS: Potassium 2.7 mmol/L (3.5-5.1)
[2018-03-24] MEDS: Ursodiol 300 MG CAP PO SCH ×2 (10:50→20:53)
[2018-03-24] MEDS: Atorvastatin Calcium 40 MG TAB PO SCH (10:50)
[2018-03-24] MEDS: Potassium Chloride 20 MEQ TAB PO SCH ×2 (10:50→16:46)
[2018-03-24] MEDS: Pantoprazole 40 MG VIAL IVP SCH (10:51)
[2018-03-24] MEDS ORDERED: HYDROcodone/Acetaminophen 10/325 mg Tablet PO PRN ×2 (12:20)
[2018-03-24] MEDS ORDERED: traMADol HCl 50 MG TAB PO PRN ×2 (12:20→12:21)
--- NOTE | 2018-03-24 15:40 | PRG ---
DATE OF SERVICE: 03/24/2018 GI INPATIENT DAILY PROGRESS NOTE SUBJECTIVE: Mrs. Jaramillo was feeling pretty well this morning. She advanced her diet. She had cream o f wheat and toast with no problems. For lunch, she had some chicken fried steak. However, with the chicken fried steak, she did start to have a little bit of recurrent epigastric pain. No nausea or v omiting, though. No fever. PHYSICAL EXAMINATION: VITAL SIGNS: Temperature 97.8, pulse 82, blood pressure 162/76, 99% oxygen saturation on room air. GENERAL: No acute distress. HEART: Regular rate and rhythm. LUNGS: Clear to auscultation bilaterally. ABDOMEN: Bowel sounds are present in all quadrants, soft, some tenderness to palpation in the epigas trium, but no guarding, rebound or tenderness. EXTREMITIES: No peripheral edema. LABORATORY STUDIES: Hemoglobin 10.0, WBC 8.1, platelets 206,000. Sodium 138, potassium 2.7, BUN 8, creatinine 0.77. LFTs continue to trend down slowly with total bilirubin 1.7, alkaline phosphatase 2 15, AST 76, ALT 179. ASSESSMENT AND PLAN: 1. Hemobilia as a complication of liver biopsy, now status post endoscopic retrograde cholangiopancr eatography with biliary sphincterotomy and extraction of blood clots from the common bile duct with Shan Templeton on 03/22/2018. 2. Acute pancreatitis secondary to hemobilia, clinically improving. 3. Elevated liver function tests secondary to hemobilia, improving after endoscopic retrograde chola ngiopancreatography. Mrs. Jaramillo continues to do well. She has had clinical improvement. I did advise her not to push too hard on the diet and if she starts having worsening abdominal pain, to let us know. I do expect she will continue to improve. If tolerating her diet with no problems tomorrow morning, I anticipate she could potentially be discharged from the hospital to follow up with Dr. Wood in our clinic.
--- NOTE | 2018-03-24 16:16 | PDOC.PN ---
- Subjective Encounter Start Date: 03/24/18 Encounter Start Time: 08:20 Pt seen for followup re: hemobilia. Feels better. Pain is better. No nausea or vomiting. - Objective Vital Signs & Weight: Vital Signs (12 hours) Temp Pulse Resp BP Pulse Ox 03/24/18 12:11 97.8 F 82 18 162/76 H 99 03/24/18 07:34 98.5 F 70 18 167/79 H 100 03/24/18 07:30 98.5 F 70 18 100 Weight Weight 144 lb 13.499 oz I&O: 03/23/18 03/24/18 03/25/18 06:59 06:59 06:59 Intake Total 6100 5690 Output Total 2250 4800 Balance 3850 890 Result Diagrams: 03/24/18 08:40 03/24/18 08:40 Additional Labs: Accuchecks 03/24/18 03/24/18 03/23/18 10:46 05:36 20:47 POC Glucose 155 H 105 190 H 03/23/18 17:05 POC Glucose 111 H Phys Exam - Physical Examination Constitutional: NAD HEENT: moist MMs icterus Neck: supple Respiratory: clear to auscultation bilateral Cardiovascular: RRR Gastrointestinal: soft Neurological: moves all 4 limbs Psychiatric: normal affect Dx/Plan (1) Hemobilia Code(s): K83.8 - OTHER SPECIFIED DISEASES OF BILIARY TRACT Status: Acute Comment: LFTs improving. Pain better. Likley home tomorrow. (2) CAD (coronary artery disease) Code(s): I25.10 - ATHSCL HEART DISEASE OF [place] CORONARY ARTERY W/O ANG PCTRS Status: Chronic Comment: stable (3) DM2 (diabetes mellitus, type 2) Status: Chronic Comment: reasonable control (4) Hypothyroidism Code(s): E03.9 - HYPOTHYROIDISM, UNSPECIFIED Status: Chronic Comment: continue synthroid - Plan * . Review of Systems - Review of Systems Cardiovascular: negative: chest pain, palpitations, orthopnea, paroxysmal nocturnal dyspnea, edema, light headedness Gastrointestinal: Nausea, Abdominal Pain. negative: Vomiting, Diarrhea, Constipation, Melena, Hematochezia - Medications/Allergies Allergies/Adverse Reactions: Allergies Allergy/AdvReac Type Severity Reaction Status Date / Time carisoprodol [From Soma] Allergy Verified 03/16/18 10:31 Medications: Current Medications Acetaminophen (Tylenol) 650 mg [place] Q4H PRN PRN Reason: Headache/Fever or Pain Hydrocodone Bitart/Acetaminophen ([place] 10/325) 1 tab PO Q4H PRN PRN Reason: Pain 1-4 1ST LINE Hydrocodone Bitart/Acetaminophen ([place] 10/325) 2 tab PO Q4H PRN PRN Reason: Pain 5-10 2ND LINE Al Hydroxide/Mg Hydroxide (Maalox) 30 ml PO Q6H PRN PRN Reason: Heartburn or Indigestion Atorvastatin Calcium (Lipitor) 40 mg PO DAILY [facility] Last Admin: 03/24/18 10:50 Dose: 40 mg Benzonatate (Tessalon) 100 mg PO Q4H PRN PRN Reason: Cough Bisacodyl (Dulcolax) 10 mg PO DAILYPRN PRN PRN Reason: Constipation Calcium Carbonate (Tums) 1,000 mg PO Q4H PRN PRN Reason: Heartburn or Indigestion Dextrose/Water (Dextrose 50%) 25 gm SLOW IVP PRN PRN PRN Reason: Hypoglycemia Diphenhydramine HCl (Benadryl) 25 mg IM/IV Q3H PRN PRN Reason: Itching Diphenhydramine HCl (Benadryl) 25 mg PO Q3H PRN PRN Reason: Itching Glucagon (Glucagon) 1 mg IM PRN PRN PRN Reason: Hypoglycemia Guaifenesin (Robitussin Sf) 200 mg PO Q4H PRN PRN Reason: Cough Hydralazine HCl (Apresoline) 10 mg SLOW IVP Q4H PRN PRN Reason: Systolic BP > 170 Last Admin: 03/22/18 20:40 Dose: 10 mg Sodium Chloride (Normal Saline 0.9%) 1,000 mls @ 200 mls/hr IV .Q5H [facility] Last Admin: 03/24/18 06:12 Dose: 1,000 mls Dextrose/Water (D5w) 1,000 mls @ 0 mls/hr IV .Q0M PRN PRN Reason: Hypoglycemia Insulin Human Lispro (Humalog) 0 units SC .MILD SLIDING SCALE PRN PRN Reason: Mild Correctional Scale Last Admin: 03/23/18 13:05 Dose: 2 unit Levothyroxine Sodium (Synthroid) 100 mcg PO 0600 [facility] Last Admin: 03/24/18 05:15 Dose: 100 mcg Loratadine (Claritin) 10 mg PO DAILYPRN PRN PRN Reason: Sinus Symptoms Naloxone HCl (Narcan) 0.2 mg IV Q5MIN PRN PRN Reason: RR <8 or pt obtun/unarousable Nitroglycerin (Nitrostat) 0.4 mg SL Q5MIN PRN PRN Reason: Chest Pain Ondansetron HCl (Zofran) 4 mg IVP Q6H PRN PRN Reason: Nausea/Vomiting Pantoprazole Sodium (Protonix) 40 mg PO DAILY [facility] Last Admin: 03/24/18 10:50 Dose: 40 mg Pantoprazole Sodium (Protonix) 40 mg IVP DAILY [facility] Last Admin: 03/24/18 10:51 Dose: Not Given Promethazine HCl (Phenergan) 12.5 mg IM Q4H PRN PRN Reason: Nausea/Vomiting Senna (Senokot) 2 tab PO HSPRN PRN PRN Reason: Constipation Sodium Chloride (Flush - Normal Saline) 10 ml IVF Q12HR [facility] Last Admin: 03/24/18 10:51 Dose: 10 ml Sodium Chloride (Flush - Normal Saline) 10 ml IVF PRN PRN PRN Reason: Saline Flush Tramadol HCl (Ultram) 50 mg PO Q6H PRN PRN Reason: Pain 1-4 2ND LINE Tramadol HCl (Ultram) 100 mg PO Q6H PRN PRN Reason: Pain 5-10 2ND LINE Ursodiol (Actigal) 600 mg PO BID [facility] Last Admin: 03/24/18 10:50 Dose: 600 mg Zolpidem Tartrate (Ambien) 5 mg PO HSPRN PRN PRN Reason: Insomnia
[2018-03-25] MEDS: Sodium Chloride 0.9% 1,000 ML IV SCH ×2 (03:52→08:48)
[2018-03-25 05:17] LABS: #Eosinphils 0.3 thou/uL (0.0-0.7); #Lymphocytes 1.6 thou/uL (1.20-3.40); #Monocytes 0.4 thou/uL (0.11-0.59); #Neutrophils 4.9 thou/uL (1.40-6.50); %Basophils 0.3 % (0.0-1.0); %Eosinophils 4.6 % (0.0-10.0); %Lymphocytes 22.1 % (21.0-51.0); Hemoglobin 9.6 g/dL (12.0-16.0); Mean Corpuscular Hemoglobin 30.5 pg (27.0-31.0); Mean Corpuscular Volume 89.8 fL (78.0-98.0); Mean Platelet Volume 8.6 fL (7.4-10.4); Platelet Count 196 thou/uL (130-400); Red Blood Cell (RBC) Count 3.13 mill/uL (4.20-5.40); White Blood Cell (WBC) Count 7.3 thou/uL (4.8-10.8)
[2018-03-25 05:37] LABS: ALT (SGPT) 140 U/L (8-55); AST (SGOT) 54 U/L (5-34); Albumin 3.3 g/dL (3.4-4.8); Alkaline Phosphatase 213 U/L (40-150); Anion Gap 11 mmol/L (10-20); BUN (Urea Nitrogen) 6 mg/dL (9.8-20.1); Bilirubin, Total 1.5 mg/dL (0.2-1.2); Calc. Creatinine Clearance 74 mL/min (70-130); Calcium 7.6 mg/dL (7.8-10.44); Carbon Dioxide 19 mmol/L (23-31); Chloride 107 mmol/L (98-107); Estimated GFR-MDRD 75; Globulin 2.7 g/dL (2.4-3.5); Glucose 126 mg/dL (80-115); Potassium 3.2 mmol/L (3.5-5.1); Sodium 134 mmol/L (136-145)
[2018-03-25] MEDS: Levothyroxine Sodium 100 MCG TAB PO SCH (06:07)
[2018-03-25] MEDS: Atorvastatin Calcium 40 MG TAB PO SCH (08:49)
[2018-03-25] MEDS: Potassium Chloride 20 MEQ TAB PO SCH ×2 (08:49→12:07)
[2018-03-25] MEDS: Ursodiol 300 MG CAP PO SCH (08:49)
[2018-03-25] MEDS: Pantoprazole 40 MG VIAL IVP SCH (08:51)
--- NOTE | 2018-03-25 12:25 | DIS ---
PRIMARY CARE PHYSICIAN: Dr. Naveed Spears DATE OF ADMISSION: 03/21/2018 DATE OF DISCHARGE: 03/25/2018 DISCHARGE DIAGNOSES: 1. Hemobilia. 2. Hypokalemia. 3. Abnormal liver function tests. 4. Acute pancreatitis. CONDITION OF PATIENT ON THE DAY OF DISCHARGE: Stable. I assessed Ms. Jaramillo on the day of discharge. She denies any chest pain or shortness of breath. Vital signs are stable. S1 and S2 are heard, reg ular. Lungs are clear to auscultation bilaterally. DISCHARGE MEDICATIONS: Atorvastatin is on hold at this time because of abnormal liver function tests . This can be resumed once her liver function tests normalize, through her primary care provider's o ffice. Otherwise, she is to continue on the rest of medications as dictated in history and physical note dated 03/21/[address] Rodriguez. CONSULTATIONS DURING THIS HOSPITALIZATION: Gastroenterology, Dr. Naveed Pierre. INVESTIGATIONS DURING THIS HOSPITALIZATION: CT angiogram of the chest on 03/20/2018, which showed no evidence for pulmonary arterial embolism. She had a hyperenhancing focus within the left lobe of th e liver, which may represent hyperenhancing mass lesion. Mild inflammatory change on the basis of re cent biopsy is a possibility. 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 A 2D echocardiogram on 03/21/2018, which showed left ventricular ejection fraction of 60-65%, grade I /III diastolic dysfunction, mild mitral regurgitation, mild tricuspid regurgitation and elevated righ t ventricular systolic pressure estimated at 40 mmHg. HOSPITAL COURSE: Ms. Jaramillo is a pleasant 67-year-old lady who was admitted to [facility] on 03/21/2018 for chest pain and abdominal pain following recent liver biopsy. Please ref er Dr. Rodriguez's history and physical note dated 03/21/2018 for further details. She was seen by [facility]. She had an MRI of the abdomen, result as described above. On 03/22/2018 she had ERCP with sphincterotomy and balloon sweep of the bile duct. She was found to have hemobilia sec ondary to recent liver biopsy. Blood clots were impacted at the ampulla and caused obstruction of th e common bile duct. 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 She was started on a clear liquid diet, which was gradually advanced. Her LFTs started improving. S he was also seen by Anesthesiology Service for pain management during this hospitalization and impro ed significantly in terms of pain as well. On the day of discharge she had a sodium 134, potassium 3.2, which is being replaced, creatinine 0.77 , total bilirubin 1.5, down from 3.5 on 03/22/2018, AST 54, down from 350 on 03/20/2018, ALT 140, shani n from 192 on 03/20/2018, and alkaline phosphatase 213, stable around this number. It was 192 on 06/2018. At the time of admission, she also had an elevated lipase of 528. This normalized at 63 by 8. On 03/25/2018, she has white count of 7300, hemoglobin 9.6 and platelet count 196,000. Many thanks for allowing me to participate in your patient's care. Please feel free to contact me wi th any questions or concerns. DISCHARGE DESTINATION: Home. TOTAL AMOUNT OF TIME SPENT COORDINATING THIS DISCHARGE: 33 minutes.
[2018-03-25 13:45] VITALS: BP 157/76; TEMP 98.6
== END 2018-03-25 13:46 | disposition home or self-care (01) | DRG 919 ==
LOC: SCSER 21:25 → 2NO 03-21 01:33
PROVIDERS: ADMIT Internal Medicine; ATTEND Internal Medicine
PROC: 0F798ZZ Dilation of Common Bile Duct, Via Natural or Artificial Opening Endoscopic (ICD-10-PCS; principal; 2018-03-22)
DX: T81.89XA Other complications of procedures, not elsewhere classified, initial encounter (principal); K85.90 Acute pancreatitis without necrosis or infection, unspecified; K83.1 Obstruction of bile duct; K74.5 Biliary cirrhosis, unspecified; I25.10 Atherosclerotic heart disease of native coronary artery without angina pectoris; E11.9 Type 2 diabetes mellitus without complications; I10 Essential (primary) hypertension; E03.9 Hypothyroidism, unspecified; E78.5 Hyperlipidemia, unspecified; K21.9 Gastro-esophageal reflux disease without esophagitis; K83.8 Other specified diseases of biliary tract; E87.6 Hypokalemia; K74.0 Hepatic fibrosis; Y84.8 Other medical procedures as the cause of abnormal reaction of the patient, or of later complication, without mention of misadventure at the time of the procedure; Y92.239 Unspecified place in hospital as the place of occurrence of the external cause
CPT/HCPCS: 36415; 36416; 71045; 71275; 74181; 74330; 80053; 82553; 83690; 84484; 85025; 85379; 93005; 93306; 96361; 96374; 96375; A4216; C9113; J0360; J1100; J1650; J1956; J2001; J2270; J2370; J2405; J2550; J2704; J3010; J7050; Q9961; S0028

== ENCOUNTER 2018-07-12 10:27 | Outpatient (CLI) | payer BC, MEDICARE ==
--- NOTE | 2018-07-12 10:59 | RAD ---
TWO VIEWS RIGHT HIP: Date: 07-12-18 History: Right sided hip pain. FINDINGS: No acute fracture or evidence of dislocation. Mild lateral acetabular osteophyte formation. IMPRESSION: No acute findings. POS: [facility]
== END 2018-07-12 10:28 | disposition home or self-care (01) ==
LOC: BICRAD 10:27
PROVIDERS: ATTEND Internal Medicine
DX: M25.551 Pain in right hip (principal)

== ENCOUNTER 2019-02-25 11:18 | Emergency (ER) | payer MEDICARE, BC ==
--- NOTE | 2019-02-25 12:01 | CT ---
Exam: CT brain PROVIDED CLINICAL HISTORY: Dizziness and vomiting COMPARISON: None FINDINGS: The ventricular system is normal in size and morphology. No evidence for intracranial hemorrhage or mass effect. The extracranial soft tissues and osseous structures demonstrate no evidence for an acute abnormality. Partial opacification bilateral mastoid air cells. IMPRESSION: No evidence for intracranial hemorrhage or mass effect.
[2019-02-25 12:04] LABS: #Eosinphils 0.1 thou/uL (0.0-0.7); #Lymphocytes 1.6 thou/uL (1.20-3.40); #Monocytes 0.4 thou/uL (0.11-0.59); #Neutrophils 8.7 thou/uL (1.40-6.50); %Basophils 0.3 % (0.0-1.0); %Eosinophils 0.7 % (0.0-10.0); %Lymphocytes 14.8 % (21.0-51.0); %Monocytes 3.5 % (0.0-10.0); %Neutrophils 80.7 % (42.0-75.0); Hemoglobin 12.2 g/dL (12.0-16.0); Mean Corpuscular HGB CONC 32.6 g/dL (32.0-36.0); Mean Corpuscular Hemoglobin 27.9 pg (27.0-31.0); Mean Corpuscular Volume 85.6 fL (78.0-98.0); Mean Platelet Volume 8.8 fL (7.4-10.4); Platelet Count 264 thou/uL (130-400); RBC Distribution Width 14.3 % (11.5-14.5); Red Blood Cell (RBC) Count 4.37 mill/uL (4.20-5.40); White Blood Cell (WBC) Count 10.8 thou/uL (4.8-10.8)
[2019-02-25 12:14] LABS: ALT (SGPT) 12 U/L (8-55); AST (SGOT) 23 U/L (5-34); Albumin 4.4 g/dL (3.4-4.8); Alkaline Phosphatase 66 U/L (40-150); Anion Gap 19 mmol/L (10-20); BUN (Urea Nitrogen) 16 mg/dL (9.8-20.1); Bilirubin, Total 0.9 mg/dL (0.2-1.2); Calc. Creatinine Clearance 0 mL/min (70-130); Calcium 10.6 mg/dL (7.8-10.44); Carbon Dioxide 21 mmol/L (23-31); Chloride 95 mmol/L (98-107); Estimated GFR-MDRD 58; Globulin 3.9 g/dL (2.4-3.5); Glucose 152 mg/dL (80-115); Potassium 4.8 mmol/L (3.5-5.1); Protein, Total 8.3 g/dL (6.0-8.3); Sodium 130 mmol/L (136-145)
[2019-02-25] MEDS ORDERED: Meclizine HCl 25 MG TAB ONE (12:19)
[2019-02-25] MEDS ORDERED: Ondansetron ODT 4 MG TAB ONE (12:19)
[2019-02-25 14:02] LABS: Bilirubin Negative (Negative); Blood, Urine Negative (Negative); Clarity Clear (Clear); Glucose, Urine (Dipstick) Normal (Negative); Leukocyte Negative Leu/uL (Negative); Nitrite Negative (Negative); Protein, Urine (Dipstick) Negative (Neg-Trace); Urobilinogen Normal mg/dL (Less than 2)
[2019-02-25] MEDS ORDERED: Diazepam 10 MG/2 ML SYRINGE IVP SCH (14:45)
== END 2019-02-25 16:05 | disposition home or self-care (01) ==
LOC: ERS 11:18
DX: R42 Dizziness and giddiness (principal); E11.9 Type 2 diabetes mellitus without complications; I10 Essential (primary) hypertension; Z79.82 Long term (current) use of aspirin; Z79.84 Long term (current) use of oral hypoglycemic drugs; Z79.899 Other long term (current) drug therapy
CPT/HCPCS: 70450; 80053; 81003; 84484; 85025; 93005; 96361; 96374; J3360; J8597; Q0162

== ENCOUNTER 2019-04-15 07:37 | Outpatient (CLI) | payer BC, MEDICARE ==
--- NOTE | 2019-04-15 09:00 | CT ---
CT abdomen with and without IV contrast: HISTORY: Left adrenal mass. Primary biliary cholangitis. Colon polyps COMPARISON: 12/31/2011 FINDINGS: The lung bases are clear. There are calcified granulomas in the liver and spleen. The patient is post cholecystectomy. No hepatic mass is seen. The 3 cm lipid poor left adrenal adenoma is stable. The right adrenal gland, kidneys, pancreas are no rmal. A small hiatal hernia is again noted. No free air, free fluid or lymphadenopathy seen. A 5 mm aortocaval lymph node is present. There are v ascular calcifications without evidence of aneurysmal dilatation of the abdominal aorta. Degenerative changes are seen in the spine. IMPRESSION: 1. Small hiatal hernia 2. Old granulomatous disease 3. Stable 3 cm lipid poor left adrenal adenoma.
[2019-04-15] MEDS ORDERED: ISOVUE-370 76%-LOCM 1 ML ONE (10:23)
== END 2019-04-15 07:38 | disposition home or self-care (01) ==
LOC: BICCT 07:37
PROVIDERS: ATTEND Internal Medicine Gastroenterology
DX: E27.8 Other specified disorders of adrenal gland (principal); K74.3 Primary biliary cirrhosis; K44.9 Diaphragmatic hernia without obstruction or gangrene; D35.02 Benign neoplasm of left adrenal gland; Z86.010 Personal history of colon polyps
CPT/HCPCS: 74170; 82565

== ENCOUNTER 2019-06-14 08:21 | Outpatient (CLI) | payer BC, MEDICARE ==
--- NOTE | 2019-06-14 09:19 | MRI ---
MR the lumbar spine without contrast INDICATION: Sciatica COMPARISON: Lumbar radiograph dated October 25, 2010 TECHNIQUE: Multiplanar multisequence MR images were obtained of lumbar spine without IV contrast. FINDINGS: Bone marrow: Bone marrow signal intensity appears within normal limits. Distal spinal cord and conus: Normal. The conus seen to terminate at L1. Visualized retroperitoneum and paraspinal soft tissues: Normal. Vertebral levels: L5-S1: There is a broad-based disc bulge with facet hypertrophy inducing moderate to severe right bear ral foraminal narrowing.. L4-5: There is advanced facet joint degenerative change. There is grade 1 anterolisthesis. There is a n asymmetric to the right broad-based disc bulge. There is prominence of the ligamentum flavum. The constellation of findings induces moderate central canal narrowing with moderate to severe right and moderate left neural foraminal narrowing. L3-4: There is a broad-based disc bulge with mild facet joint degenerative change inducing mild left neural foraminal narrowing. L2-3: There is a mild broad-based disc bulge causing mild neural foraminal encroachment without impin gement. L1-L2: There is a mild broad-based bulge with mild neural foraminal encroachment T12-L1: No appreciable central canal or neuroforaminal narrowing. IMPRESSION: 1. Mild to moderate spondylosis of the lumbar spine with moderate central canal narrowing with modera te to severe right and moderate left neural foraminal narrowing at L4-5. There is grade 1 anterolisthesis of L4 and L5 that is degenerative in nature. 2. Moderate to severe right neural foraminal narrowing at L5-S1. 3. Mild left neural foraminal narrowing at L3-4
== END 2019-06-14 08:22 | disposition home or self-care (01) ==
LOC: BICMRI 08:21
PROVIDERS: ATTEND Orthopaedic Surgery
DX: M54.31 Sciatica, right side (principal); M47.816 Spondylosis without myelopathy or radiculopathy, lumbar region; M43.16 Spondylolisthesis, lumbar region; M48.061 Spinal stenosis, lumbar region without neurogenic claudication; M48.07 Spinal stenosis, lumbosacral region
CPT/HCPCS: 72148

== ENCOUNTER 2020-03-05 08:54 | Outpatient (CLI) | payer BC, MEDICARE ==
--- NOTE | 2020-03-05 09:53 | MMO ---
Bilateral MAMMO Bilat Diag [facility]+IMER. CLINICAL HISTORY: Patient is 69 years old and is seen for diagnostic exam. The patient has the following family history of breast cancer: mother, at age 50, malignant (generic). The patient has no personal history of cancer. The patient has a history of right Ultrasound Guided Core Biopsy more than 10 years ago - benign. VIEWS: The views performed were: bilateral craniocaudal with tomosynthesis; bilateral mediolateral oblique with tomosynthesis; bilateral mediolateral with tomosynthesis; left craniocaudal spot compression with tomosynthesis; and left mediolateral spot compression with tomosynthesis. FILMS COMPARED: The present examination has been compared to prior imaging studies performed at and at [facility] on 03/05/2020. This study has been interpreted with the assistance of computer-aided detection. MAMMOGRAM FINDINGS: The breasts are heterogeneously dense, which could obscure a lesion on mammography. Benign calcifications are noted bilaterally. The left nipple appears inverted without US abnormality. There are no suspicious masses, suspicious calcifications, or new areas of architectural distortion. IMPRESSION: THERE IS NO MAMMOGRAPHIC EVIDENCE OF MALIGNANCY. A ROUTINE FOLLOW-UP MAMMOGRAM IN 1 YEAR IS RECOMMENDED. THE RESULTS OF THIS EXAM WERE SENT TO THE PATIENT. ACR BI-RADS Category 2 - Benign finding Further evaluation with Breast MRI would be helpful. MAMMOGRAPHY NOTE: 1. A negative mammogram report should not delay a biopsy if a dominant of clinically suspicious mass is present. 2. Approximately 10% to 15% of breast cancers are not detected by mammography. 3. Adenosis and dense breasts may obscure an underlying neoplasm. Reported by: MILLER ALLEN MD Electonically Signed: [id number]
--- NOTE | 2020-03-05 10:21 | ULT ---
LEFT BREAST ULTRASOUND: Date: 03/05/2020 HISTORY: Inverted left nipple. FINDINGS: Sonographic evaluation of the left retroareolar region demonstrates no abnormality. IMPRESSION: BI-RADS Category 2 - Benign findings. Further evaluation with contrast enhanced breast MRI is recomme nded. POS: OFF
== END 2020-03-05 08:55 | disposition home or self-care (01) ==
LOC: BICMAMMO 08:54
PROVIDERS: ATTEND Internal Medicine
DX: N64.53 Retraction of nipple (principal)
CPT/HCPCS: 77066; G0279

== ENCOUNTER 2020-04-05 13:43 | Outpatient (CLI) | payer BC, MEDICARE ==
--- NOTE | 2020-04-05 15:59 | MRI ---
MRI BREAST W W/O CONT BILAT History: Nipple retraction Comparison: Mammogram March 05, 2020 Findings: Multiplanar multisequence MRI of the breasts was performed prior to and after the intraveno us ministration of contrast. The exam was reviewed on an independent 3-D workstation. Scattered fibroglandular densities. Mild background parenchymal enhancement. There is central inversion of the left nipple without any inversion of the right nipple. The right ni pple areolar complex enhancement is normal including the superficial linear enhancement, nonenhancing zone, and zone of the internal nipple enhancement which is linear and mild. No nipple retraction. The left nipple zone of superficial linear enhancement follows the central inversion. The internal ni pple enhancement is coalesced centrally. Within the zone of internal nipple enhancement there is type I persistent kinetics. No abnormal mass is appreciated. In the upper outer right breast is a curvilinear T2 mildly hyperintense mass with type I kinetics leticia suring 4 mm, which when corresponding to the tomographic mammograms, is not a new and likely a lymph node. No axillary or internal mammary adenopathy. No marrow signal replacement on the T1 weighted imaging sequence. No abnormal hepatic mass is appreciated. No significant pericardial fluid. Impression: BI-RADS Category 2: Benign findings. Continued annual mammographic screening is recommended. Transcribed Date/Time: 04/05/2020 4:49 PM BI-RADS 2 -- benign findings
== END 2020-04-05 13:44 | disposition home or self-care (01) ==
LOC: BICMRI 13:43
PROVIDERS: ATTEND Internal Medicine
DX: N64.59 Other signs and symptoms in breast (principal)
CPT/HCPCS: 82565; A9577; C8908

== ENCOUNTER 2021-04-03 08:54 | Outpatient (CLI) | payer BC, MEDICARE | END 2021-04-03 08:55 | disposition home or self-care (01) | LOC: BICMAMMO 08:54 | PROVIDERS: ATTEND Internal Medicine | DX: Z12.31 Encounter for screening mammogram for malignant neoplasm of breast (principal); Z80.3 Family history of malignant neoplasm of breast; Z91.89 Other specified personal risk factors, not elsewhere classified | CPT/HCPCS: 77063; 77067 ==

== ENCOUNTER 2022-04-04 09:45 | Outpatient (CLI) | payer BC, MEDICARE | END 2022-04-04 09:46 | disposition home or self-care (01) | LOC: BICMAMMO 09:45 | PROVIDERS: ATTEND Internal Medicine | DX: Z12.31 Encounter for screening mammogram for malignant neoplasm of breast (principal); Z80.3 Family history of malignant neoplasm of breast; Z91.89 Other specified personal risk factors, not elsewhere classified | CPT/HCPCS: 77063; 77067 ==

== ENCOUNTER 2022-04-08 12:48 | Outpatient (CLI) | payer BC, MEDICARE | END 2022-04-08 12:49 | disposition home or self-care (01) | LOC: MRI 12:48 | PROVIDERS: ATTEND Nurse Practitioner Family | DX: M51.16 Intervertebral disc disorders with radiculopathy, lumbar region (principal); M43.16 Spondylolisthesis, lumbar region; M48.061 Spinal stenosis, lumbar region without neurogenic claudication; M48.07 Spinal stenosis, lumbosacral region | CPT/HCPCS: 72148 ==

== ENCOUNTER 2022-05-15 13:49 | Outpatient (CLI) | payer BC, MEDICARE | END 2022-05-15 13:50 | disposition home or self-care (01) | LOC: TBSIIMAG 13:49 | PROVIDERS: ATTEND Neurological Surgery | DX: M47.26 Other spondylosis with radiculopathy, lumbar region (principal); M41.86 Other forms of scoliosis, lumbar region | CPT/HCPCS: 72110 ==

== ENCOUNTER 2023-02-18 09:25 | Outpatient (CLI) | payer BC, MEDICARE | END 2023-02-18 09:26 | disposition home or self-care (01) | LOC: BICMRI 09:25 | PROVIDERS: ATTEND Nurse Practitioner Family | DX: M47.22 Other spondylosis with radiculopathy, cervical region (principal); M50.123 Cervical disc disorder at C6-C7 level with radiculopathy; M48.02 Spinal stenosis, cervical region; M53.82 Other specified dorsopathies, cervical region; M89.38 Hypertrophy of bone, other site | CPT/HCPCS: 72141 ==

== ENCOUNTER 2023-05-25 07:30 | Inpatient (IN) | payer BC, MEDICARE ==
[2023-05-25 08:14] VITALS: BMI 24.7
[2023-05-28] MEDS ORDERED: Vancomycin 1 GM VIAL ONE (10:49)
[2023-05-28] MEDS ORDERED: Thrombin 5000 UNITS/5 ML VIAL ONE (10:49)
[2023-05-28] MEDS ORDERED: CEFAZOLIN 2 GM VIAL ONE (11:36)
[2023-05-28] MEDS ORDERED: Sodium Chloride 0.9% 100 ML ONE (11:36)
[2023-05-28] MEDS ORDERED: Fentanyl 250 MCG/5 ML VIAL ONE (11:45)
[2023-05-28] MEDS ORDERED: SUGAMMADEX SODIUM 200 MG/2 ML VIAL ONE (11:45)
[2023-05-28] MEDS ORDERED: Midazolam HCl 2 mg/2 ml Vial ONE (11:50)
[2023-05-28] MEDS ORDERED: Phenylephrine 10 MG/ML VIAL ONE (12:20)
[2023-05-28] MEDS ORDERED: Ondansetron HCl/PF 4 MG/2 ML Vial IVP PRN (16:18)
[2023-05-28] MEDS ORDERED: Promethazine HCl 25 MG/ML VIAL IM PRN (16:18)
[2023-05-28] MEDS ORDERED: fentaNYL PF 100 MCG/2 ML SYRINGE ONE (16:51)
== END 2023-05-28 17:42 | disposition home or self-care (01) | DRG 472 ==
LOC: SURG A 05-28 10:25
PROVIDERS: ADMIT Neurological Surgery; ATTEND Neurological Surgery
PROC: 0RG20A0 Fusion of 2 or more Cervical Vertebral Joints with Interbody Fusion Device, Anterior Approach, Anterior Column, Open Approach (ICD-10-PCS; principal; 2023-05-28)
PROC: 00NW0ZZ Release Cervical Spinal Cord, Open Approach (ICD-10-PCS; 2023-05-28)
PROC: 0RT30ZZ Resection of Cervical Vertebral Disc, Open Approach (ICD-10-PCS; 2023-05-28)
DX: M50.021 Cervical disc disorder at C4-C5 level with myelopathy (principal); M47.12 Other spondylosis with myelopathy, cervical region; M50.022 Cervical disc disorder at C5-C6 level with myelopathy; M50.023 Cervical disc disorder at C6-C7 level with myelopathy; E78.00 Pure hypercholesterolemia, unspecified; E11.9 Type 2 diabetes mellitus without complications; I10 Essential (primary) hypertension; G89.29 Other chronic pain; E07.9 Disorder of thyroid, unspecified; M25.78 Osteophyte, vertebrae; Z98.890 Other specified postprocedural states; Z90.49 Acquired absence of other specified parts of digestive tract; Z90.89 Acquired absence of other organs; Z90.710 Acquired absence of both cervix and uterus; Z83.3 Family history of diabetes mellitus; Z82.49 Family history of ischemic heart disease and other diseases of the circulatory system; Z87.891 Personal history of nicotine dependence
CPT/HCPCS: A4314; C1713; J2250; J2370; J3010; J3370; J3490

== ENCOUNTER 2023-10-22 10:52 | Outpatient (CLI) | payer BC, MEDICARE | END 2023-10-22 10:53 | disposition home or self-care (01) | LOC: BICMAMMO 10:52 | PROVIDERS: ATTEND Internal Medicine | DX: Z12.31 Encounter for screening mammogram for malignant neoplasm of breast (principal); Z80.3 Family history of malignant neoplasm of breast; Z91.89 Other specified personal risk factors, not elsewhere classified | CPT/HCPCS: 77063; 77067 ==

== ENCOUNTER 2024-07-14 10:09 | Outpatient (CLI) | payer BC, MEDICARE | END 2024-07-14 10:10 | disposition home or self-care (01) | LOC: BICMAMMO 10:09 | PROVIDERS: ATTEND Internal Medicine | DX: Z13.820 Encounter for screening for osteoporosis (principal); Z78.0 Asymptomatic menopausal state; M85.89 Other specified disorders of bone density and structure, multiple sites | CPT/HCPCS: 77080 ==